=== PATIENT | female | born 1960 | race Caucasian/White ===

== ENCOUNTER 2018-09-16 13:39 | Outpatient (CLI) | payer BC ==
--- NOTE | 2018-09-16 16:10 | ULT ---
TRANSVAGINAL PELVIC ULTRASOUND WITH DOPPLER: HISTORY: Postmenopausal bleeding. COMPARISON: None. TECHNIQUE: Real-time, wills-scale, color, and spectral analysis of the pelvis is performed with a transabdominal and transvaginal approach. FINDINGS: The uterus measures 7.5 x 3.3 x 5.1 cm. Endometrial thickness measures 9 mm. No endometrial mass is appreciated. The junctional zone appears normal. An 8 mm nabothian cyst is present in the cervix. No free fluid in the pelvis. The right ovary measures 1.9 x 1.9 x 1.1 cm, and the left ovary measures 1.8 x 1.5 x 1.4 cm. No mass . Adequate vascular flow. IMPRESSION: Endometrial thickness measures 9 mm, mildly engorged for a perimenopausal patient. Recommend follow- up examination in six months. Examination is otherwise unremarkable. POS: [facility]
== END 2018-09-16 13:40 | disposition home or self-care (01) ==
LOC: BICULT 13:39
PROVIDERS: ATTEND Family Medicine
DX: Z12.31 Encounter for screening mammogram for malignant neoplasm of breast (principal); N95.0 Postmenopausal bleeding; R93.89 Abnormal findings on diagnostic imaging of other specified body structures
CPT/HCPCS: 76856; 77063; 77067

== ENCOUNTER 2019-11-04 13:55 | Outpatient (CLI) | payer BC ==
--- NOTE | 2019-11-04 15:51 | MRI ---
MRI OF THE RIGHT HAND WITHOUT CONTRAST: INDICATION: A 59-year-old female with collateral ligament injury to the right long finger with pain and swelling in the knuckle area after flicking her hand on September. COMPARISON: Radiographs of the right hand dated 10/03/2019. TECHNIQUE: Multiplanar, multisequence MR images were obtained of the right long finger without IV contrast. FINDINGS: There is disruption of the medial sagittal band of the extensor digitorum at the level of the MCP ish nts and extending slightly proximally into the extensor healy with lateral deviation of the extensor d igitorum longus tendon. There is soft tissue swelling seen near this site at the level of the MCP he ad. The remaining extensor and visualized flexor tendons appear intact. The collateral ligaments of the MCP, PIP, and DIP joints appear intact of the middle finger. The intrinsic hand musculature zeke ears within normal limits. IMPRESSION: 1. Findings most consistent with a Boxer's knuckle. There is a complete tear involving the medial sagittal band of the long finger extensor tendon at the level of the metacarpophalangeal joint with some proximal extension into the extensor healy. There is lateral deviation of the extensor digitorum at the level of the distal long finger metacarpal shaft, head, and metacarpophalangeal joint. The e xtensor digitorum tendon does appear to be intact, however. 2. Collateral ligaments of the right long finger are intact. POS: BH
== END 2019-11-04 13:56 | disposition home or self-care (01) ==
LOC: BICMRI 13:55
PROVIDERS: ATTEND Orthopaedic Surgery Hand Surgery
DX: S69.91XA Unspecified injury of right wrist, hand and finger(s), initial encounter (principal); S63.652A Sprain of metacarpophalangeal joint of right middle finger, initial encounter

== ENCOUNTER 2019-11-13 06:41 | Day surgery (SDC) | payer BC ==
[2019-11-12 11:03] VITALS: BMI 30.9
[2019-11-13 07:40] LABS: #Basophils 0.1 thou/uL (0.0-0.2); #Eosinphils 0.1 thou/uL (0.0-0.7); #Lymphocytes 2.9 thou/uL (1.20-3.40); #Monocytes 0.7 thou/uL (0.11-0.59); #Neutrophils 6.3 thou/uL (1.40-6.50); %Basophils 1.4 % (0.0-1.0); %Lymphocytes 28.3 % (21.0-51.0); %Monocytes 7.1 % (0.0-10.0); %Neutrophils 62.3 % (42.0-75.0); Hemoglobin 14.3 g/dL (12.0-16.0); Mean Corpuscular HGB CONC 34.1 g/dL (32.0-36.0); Mean Corpuscular Hemoglobin 30.5 pg (27.0-31.0); Mean Corpuscular Volume 89.3 fL (78.0-98.0); Mean Platelet Volume 6.2 fL (7.4-10.4); Platelet Count 335 thou/uL (130-400); RBC Distribution Width 11.2 % (11.5-14.5); Red Blood Cell (RBC) Count 4.68 mill/uL (4.20-5.40); White Blood Cell (WBC) Count 10.1 thou/uL (4.8-10.8)
[2019-11-13] MEDS ORDERED: PROPOFOL 200 MG/20 ML VIAL ONE (11:45)
[2019-11-13] MEDS ORDERED: Succinylcholine Chloride 20 MG/ML 10 ml SYRINGE FS ONE (11:45)
[2019-11-13] MEDS ORDERED: Lidocaine 1% PF 5 ML VIAL ONE (11:45)
[2019-11-13] MEDS ORDERED: Dexamethasone 20 MG/5 ML VIAL ONE (11:45)
[2019-11-13] MEDS ORDERED: Ondansetron PF 4 MG/2 ML Vial ONE (11:45)
[2019-11-13] MEDS ORDERED: Glycopyrrolate 0.2 MG/ML 5 ML SYRINGE ONE (11:45)
[2019-11-13] MEDS ORDERED: Bacitracin Zinc Ointment 30 gm TUBE ONE (12:55)
[2019-11-13] MEDS ORDERED: Betamet Acet/Betamet Na Ph 30 MG/5 ML VIAL ONE (12:55)
[2019-11-13] MEDS ORDERED: Bupivacaine PF 0.5% 30 ML VIAL ONE (12:55)
[2019-11-13] MEDS ORDERED: Fentanyl 100 MCG/2 ML VIAL ONE (12:56)
[2019-11-13] MEDS ORDERED: Midazolam HCl 2 mg/2 ml Vial ONE (13:13)
[2019-11-13] MEDS ORDERED: Promethazine HCl 25 MG/ML VIAL SLOW IVP PRN (15:05)
[2019-11-13] MEDS ORDERED: Ketorolac Tromethamine 30 MG/ML VIAL IVP PRN (15:05)
[2019-11-13] MEDS ORDERED: Ondansetron HCl/PF 4 MG/2 ML Vial IVP PRN (15:05)
[2019-11-13] MEDS ORDERED: Meperidine HCl/PF 25 MG/ML VIAL SLOW IVP PRN (15:05)
[2019-11-13] MEDS ORDERED: Promethazine HCl 25 MG/ML VIAL IM PRN (15:05)
[2019-11-13] MEDS ORDERED: HYDROmorphone 2 MG/ML VIAL SLOW IVP PRN (15:05)
[2019-11-13] MEDS ORDERED: Ketorolac Tromethamine 30 MG/ML VIAL ONE (15:32)
--- NOTE | 2019-11-14 05:11 | OP ---
DATE OF PROCEDURE: 11/13/2019 PREOPERATIVE DIAGNOSIS: Right extensor healy rupture versus laceration and small sagittal band rupture, partial. FINDINGS: 1. 2.0 cm partially healed separation of the extensor healy over the joint, metacarpophalangeal joint, right middle finger. 2. 5-6 mm oblique extension towards the sagittal band of the same laceration, same zone, zone 5 injury. TOURNIQUET TIME: 38 minutes. ESTIMATED BLOOD LOSS: 10 mL. PROCEDURE PERFORMED: 1. Right extensor healy 2.0 cm laceration/partial rupture repair. 2. Right sagittal band laceration repair, 5 mm x 0.5 cm. COMPLICATIONS: None. INDICATIONS: The patient with pain after acute injury. She cannot remember the direction the finger went in, but after a direct blow to the finger had pain, did not resolve with immobilization. MRI showed the extensor healy injury over the MP joint and a small possible sagittal band injury in the same region, zone 5. DESCRIPTION OF PROCEDURE: After successful general endotracheal anesthesia, limb was prepped and draped. We then did a time-out appropriately and the marked middle finger ulnar aspect matched the consent and the site. We then injected with 20 mL of 0.5% Marcaine subcutaneous only. We exsanguinated the limb and inflated the tourniquet to 250 mmHg pressure. Entered with a zigzag incision with the area off the midline more ulnar because this is where the pain and MRI indicated. I carried this 1.5 cm distal to the healy. We did exploration sharply until we came to the healy and we found slightly ulnar to the midline, the extensor healy had an area of scar tissue with reparative type look, indicative of the body's attempt to heal a 2 cm injury, but it could not. Then, just distal to this, by the extensor mass itself, was a 5-6 mm sagittal band oblique laceration. We debrided both lacerations. Underneath the extensor healy laceration was the joint capsule, and it had a small near-complete laceration, so we completed this. We irrigated the area. We closed the joint area with 4-0 undyed Vicryl interrupted mattress pattern. We closed the extensor defect in the healy with an interrupted 4-0 Prolene in a [id number] pattern. We used interrupted [id number] to close the sagittal band laceration as well. After this, there was no gap formation seen, whereas there was a gap formation seen with just 60 degrees of flexion at the MP joint before. We deflated the tourniquet, obtained hemostasis. We closed the incision with interrupted 4-0 nylon in interrupted mattress pattern and placed a bulky dressing. Index finger and long finger were included in a splint at only 10 degrees of MP flexion and full PIP extension. DIP was free. The patient left the operating room without evidence of anesthetic or operative complication. Job ID: [id number]
== END 2019-11-13 16:15 | disposition home or self-care (01) ==
LOC: SDC 06:41
PROVIDERS: ATTEND Orthopaedic Surgery Hand Surgery
PROC: 0LQ70ZZ Repair Right Hand Tendon, Open Approach (ICD-10-PCS; principal; 2019-11-13)
DX: S66.322A Laceration of extensor muscle, fascia and tendon of right middle finger at wrist and hand level, initial encounter (principal); X58.XXXA Exposure to other specified factors, initial encounter
CPT/HCPCS: 36415; 85025; J0690; J0702; J1885; J2250; J3010; J3370; S0020

== ENCOUNTER 2020-01-14 13:56 | Outpatient (CLI) | payer BC ==
[~2020-01-14 13:56] MED LIST: HYDROmorphone 2 MG/ML VIAL SLOW IVP PRN; Ketorolac Tromethamine 30 MG/ML VIAL IVP PRN; Meperidine HCl/PF 25 MG/ML VIAL SLOW IVP PRN; Ondansetron HCl/PF 4 MG/2 ML Vial IVP PRN; Promethazine HCl 25 MG/ML VIAL IM PRN; Promethazine HCl 25 MG/ML VIAL SLOW IVP PRN
--- NOTE | 2020-01-14 16:29 | MMO ---
Bilateral MAMMO Bilat Screen [facility]DI+DARRYN. CLINICAL HISTORY: Patient is 59 years old and is seen for screening. The patient has no family history of breast cancer. The patient has no personal history of cancer. VIEWS: The views performed were: bilateral craniocaudal with tomosynthesis and bilateral mediolateral oblique with tomosynthesis. FILMS COMPARED: The present examination has been compared to prior imaging studies performed at [facility] on 09/16/2018, and at [facility] on 03/10/2013, 03/02/2014 and 04/13/2016. This study has been interpreted with the assistance of computer-aided detection. MAMMOGRAM FINDINGS: There are scattered fibroglandular densities. There are no suspicious masses, suspicious calcifications, or new areas of architectural distortion. IMPRESSION: THERE IS NO MAMMOGRAPHIC EVIDENCE OF MALIGNANCY. A ROUTINE FOLLOW-UP MAMMOGRAM IN 1 YEAR IS RECOMMENDED. THE RESULTS OF THIS EXAM WERE SENT TO THE PATIENT. ACR BI-RADS Category 1 - Negative MAMMOGRAPHY NOTE: 1. A negative mammogram report should not delay a biopsy if a dominant of clinically suspicious mass is present. 2. Approximately 10% to 15% of breast cancers are not detected by mammography. 3. Adenosis and dense breasts may obscure an underlying neoplasm. Reported by: KAREN WHITFIELD MD Electonically Signed: [id number]
== END 2020-01-14 13:57 | disposition home or self-care (01) ==
LOC: BICMAMMO 13:56
PROVIDERS: ATTEND Family Medicine
DX: Z12.31 Encounter for screening mammogram for malignant neoplasm of breast (principal)
CPT/HCPCS: 77063; 77067

== ENCOUNTER 2021-01-23 13:24 | Outpatient (CLI) | payer BC | END 2021-01-23 13:25 | disposition home or self-care (01) | LOC: BICMAMMO 13:24 | PROVIDERS: ATTEND Family Medicine | DX: Z12.31 Encounter for screening mammogram for malignant neoplasm of breast (principal) | CPT/HCPCS: 77063; 77067 ==

== ENCOUNTER 2022-01-24 12:46 | Outpatient (CLI) | payer BC | END 2022-01-24 12:47 | disposition home or self-care (01) | LOC: BICMAMMO 12:46 | PROVIDERS: ATTEND Family Medicine | DX: Z12.31 Encounter for screening mammogram for malignant neoplasm of breast (principal) | CPT/HCPCS: 77063; 77067 ==

== ENCOUNTER 2023-03-22 07:51 | Outpatient (CLI) | payer BC | END 2023-03-22 07:52 | disposition home or self-care (01) | LOC: BICMAMMO 07:51 | PROVIDERS: ATTEND Family Medicine | DX: Z12.31 Encounter for screening mammogram for malignant neoplasm of breast (principal) | CPT/HCPCS: 77063; 77067 ==

== ENCOUNTER 2024-02-08 17:55 | Inpatient (IN) | payer BC ==
[2024-02-08 18:43] LABS: #Basophils Less than 0.03 10x3/uL (0.0-0.2); %Basophils 0.2 % (0.0-1.0); %Eosinophils 0.7 % (0.0-10.0); %Lymphocytes 20.6 % (21.0-51.0); %Monocytes 8.5 % (0.0-10.0); %Neutrophils 69.7 % (42.0-75.0); Hemoglobin 13.3 g/dL (12.0-16.0); Mean Corpuscular HGB CONC 33.3 g/dL (32.0-36.0); Mean Corpuscular Hemoglobin 29.4 pg (27.0-31.0); Mean Corpuscular Volume 88.5 fL (78.0-98.0); Mean Platelet Volume 8.6 fL (7.4-10.4); Platelet Count 384 10x3/uL (130-400); RBC Distribution Width 12.5 % (11.5-14.5); Red Blood Cell (RBC) Count 4.52 mill/uL (4.20-5.40)
[2024-02-08 18:57] LABS: ALT (SGPT) 18 U/L (8-55); AST (SGOT) 16 U/L (5-34); Albumin 3.6 g/dL (3.4-4.8); Alkaline Phosphatase 67 U/L (40-110); Anion Gap 16 mmol/L (10-20); BUN (Urea Nitrogen) 14 mg/dL (9.8-20.1); Bilirubin, Total 0.6 mg/dL (0.2-1.2); Calc. Creatinine Clearance 0 mL/min (70-130); Calcium 9.8 mg/dL (7.8-10.44); Carbon Dioxide 24 mmol/L (23-31); Chloride 103 mmol/L (98-107); Estimated GFR 94; Globulin 3.4 g/dL (2.4-3.5); Glucose 111 mg/dL (80-115); Lipase 13 U/L (8-78); Potassium 4.1 mmol/L (3.5-5.1); Sodium 139 mmol/L (136-145)
[2024-02-08 19:02] LABS: Troponin I Less than 0.010 ng/mL (< 0.028)
[2024-02-08] MEDS ORDERED: Morphine 4 MG/ML VIAL ONE (19:21)
[2024-02-08] MEDS ORDERED: Ondansetron PF 4 MG/2 ML Vial ONE ×2 (19:21→19:25)
[2024-02-08] MEDS ORDERED: Pantoprazole 40 MG VIAL ONE (19:22)
[2024-02-08] MEDS ORDERED: Piperacillin/Tazobactam 4.5 GM VIAL ONE (19:42)
[2024-02-08] MEDS ORDERED: Sodium Chloride 0.9% 100 ML ONE (19:43)
[2024-02-08 19:57] LABS: Bilirubin Negative (Negative); Blood, Urine Negative (Negative); CAUTI Indications for Culture Pelvic or flank pain; Clarity Clear (Clear); Glucose, Urine (Dipstick) Normal (Negative); Ketone, Urine Negative (Negative); Leukocyte 500 Leu/uL (Negative); Nitrite Negative (Negative); Protein, Urine (Dipstick) Negative (Neg-Trace); RBC/HPF 0-3 HPF (0-3); Specific Gravity, Urine 1.014 (1.002-1.036); Squamous Epithelial None Seen HPF (0-3); Urobilinogen Normal mg/dL (Less than 2); WBC/HPF 21-50 HPF (0-3); pH, Urine 6.5 (5.0-9.0)
[2024-02-08 19:59] LABS: Bacteria/HPF 1+ HPF (None Seen)
[2024-02-08 20:00] LABS: Urine Culture Reflex Yes Yes
[2024-02-08] MEDS ORDERED: traMADol HCl 50 MG TAB PO PRN (20:20)
[2024-02-08] MEDS ORDERED: Promethazine HCl 25 MG/ML VIAL IM PRN (20:20)
[2024-02-08] MEDS ORDERED: Acetaminophen 325 MG TAB PO PRN (20:20)
[2024-02-08] MEDS ORDERED: Ondansetron PF 4 MG/2 ML Vial IVP PRN (20:20)
[2024-02-08] MEDS: Morphine 2 MG/ML VIAL SLOW IVP PRN (21:47)
[2024-02-08] MEDS: Famotidine 20 MG TAB PO SCH (21:52)
[2024-02-08 21:53] VITALS: BMI 32.1
[2024-02-09] MEDS: Piperacillin/Tazobactam 3.375 GM in Sodium Chloride 0.9% 100 ML IVPB SCH (00:05)
[2024-02-09] MEDS: TETANUS, DIPHTHERIA TOX,ADULT (TDVAX) 0.5 ML VIAL IM ONE (00:12)
[2024-02-09 07:06] LABS: ALT (SGPT) 15 U/L (8-55); AST (SGOT) 15 U/L (5-34); Alkaline Phosphatase 56 U/L (40-110); Anion Gap 11 mmol/L (10-20); BUN (Urea Nitrogen) 15 mg/dL (9.8-20.1); Bilirubin, Total 0.8 mg/dL (0.2-1.2); Calc. Creatinine Clearance 101 mL/min (70-130); Calcium 8.9 mg/dL (7.8-10.44); Carbon Dioxide 24 mmol/L (23-31); Chloride 107 mmol/L (98-107); Estimated GFR 86; Glucose 111 mg/dL (80-115); Potassium 3.9 mmol/L (3.5-5.1); Sodium 138 mmol/L (136-145)
[2024-02-09] MEDS ORDERED: EPINEPHrine 1 MG/ML VIAL ONE (07:13)
[2024-02-09] MEDS ORDERED: Bupivacaine 0.25% HCL 30 ML VIAL ONE (07:13)
[2024-02-09] MEDS ORDERED: Piperacillin/Tazobactam 3.375 GM VIAL ONE (07:49)
[2024-02-09] MEDS ORDERED: Sodium Chloride 0.9% 100 ML ONE (07:49)
[2024-02-09] MEDS ORDERED: fentaNYL PF 100 MCG/2 ML SYRINGE ONE (08:02)
[2024-02-09] MEDS ORDERED: Ondansetron PF 4 MG/2 ML Vial ONE (08:03)
[2024-02-09] MEDS ORDERED: Lidocaine 1% PF 5 ML VIAL ONE (08:03)
[2024-02-09] MEDS ORDERED: Rocuronium Bromide 10 MG/ML (10ML VIAL) ONE (08:03)
[2024-02-09] MEDS ORDERED: PROPOFOL 20 ML ONE (08:03)
[2024-02-09] MEDS ORDERED: Dexamethasone 4 mg/ml Vial ONE (08:03)
[2024-02-09] MEDS ORDERED: SUGAMMADEX SODIUM 200 MG/2 ML VIAL ONE (09:16)
[2024-02-09] MEDS ORDERED: Ketorolac Tromethamine 30 MG (1 mL) VIAL ONE (10:08)
[2024-02-09] MEDS ORDERED: Morphine 4 MG/ML VIAL ONE (10:19)
[2024-02-09] MEDS ORDERED: traMADol HCl 50 MG TAB PO PRN (14:38)
[2024-02-09] MEDS: Acetaminophen 325 MG TAB PO SCH (15:04)
[2024-02-09 15:14] VITALS: TEMP 97.9
[2024-02-09] MEDS: traMADol HCl 50 MG TAB PO SCH (18:22)
[2024-02-09 20:12] VITALS: BP 121/65
== END 2024-02-09 20:28 | disposition home or self-care (01) | DRG 418 ==
LOC: ERS 17:55 → SURG B 20:07
PROVIDERS: ADMIT Student in an Organized Health Care Education/Training Program; ATTEND Student in an Organized Health Care Education/Training Program
PROC: 0FT44ZZ Resection of Gallbladder, Percutaneous Endoscopic Approach (ICD-10-PCS; principal; 2024-02-09)
DX: K80.00 Calculus of gallbladder with acute cholecystitis without obstruction (principal); K82.1 Hydrops of gallbladder; E03.9 Hypothyroidism, unspecified; Z98.51 Tubal ligation status; Z79.890 Hormone replacement therapy; Z79.899 Other long term (current) drug therapy; R10.13 Epigastric pain
CPT/HCPCS: 36415; 71045; 76705; 80053; 81001; 83690; 84484; 85025; 87077; 87086; 87186; 88304; 93005; 96365; 96375; C1889; C9113; J0171; J0665; J1100; J1885; J2270; J2272; J2405; J2543; J2704; J3490